=== PATIENT | female | born 1970 | race Hispanic/Latino ===

== ENCOUNTER → 2019-12-28 | Outpatient (CLI) | payer SELFPAY | LOC: GMA MATASK 10:32 | PROVIDERS: ATTEND Family Medicine | DX: Z00.00 Encounter for general adult medical examination without abnormal findings (principal); I10 Essential (primary) hypertension ==

== ENCOUNTER 2020-03-02 04:14 | Inpatient (IN) | payer BC, OTHER ==
--- NOTE | 2020-03-02 04:38 | ED.PDOC ---
History of Present Illness - General Chief Complaint: Respiratory Problem Stated Complaint: shortness of breath Time Seen by Provider: 03/02/20 04:37 Source: patient, Vital Signs reviewed Exam Limitations: no limitations - History of Present Illness Comments: This is a 49-year-old female with history of hypertension presenting to the emergency department with shortness of breath, intermittent fevers, cough, ongoing for 1 week. She tested positive for COVID-19 earlier this week at her PCP office. She was Treated at that time with amoxicillin and prednisone, But denies any significant improvement. She denies any leg swelling. She reports some chest pain with deep breath and with coughing. She denies any hemoptysis. Allergies/Adverse Reactions: Allergies NO KNOWN ALLERGY Allergy (Verified 09/17/15 14:07) Home Medications: Ambulatory Orders Amphetamine-Dextroamphetamine [Adderall 30 mg] 30 mg PO BID 09/17/15 Lisinopril 10 mg PO DAILY 09/17/15 HYDROcodone 5MG/APAP 325MG [[place] 5/325] 1 - 2 ea PO .Q4H #30 tab 09/19/15 levoFLOXacin [Levaquin] 500 mg PO Q24H #5 tab 09/19/15 metroNIDAZOLE [Flagyl] 500 mg PO Q8HR #15 tab 09/19/15 Review of Systems - Review of Systems Constitutional: States: chills, fever EENTM: States: nose congestion, throat pain. Denies: ear discharge, throat swelling, mouth pain, mouth swelling Respiratory: States: cough, short of breath. Denies: orthopnea, stridor, wheezing Cardiology: States: chest pain. Denies: edema, syncope Gastrointestinal/Abdominal: Denies: abdominal pain, constipation, diarrhea, nausea, vomiting Genitourinary: Denies: dysuria, hematuria Musculoskeletal: Denies: back pain, joint pain, muscle stiffness, neck pain Skin: Denies: lesions, rash Neurological: States: headache. Denies: paresthesia, tingling, weakness Endocrine: States: no symptoms reported Hematologic/Lymphatic: States: no symptoms reported. Denies: blood clots Past Medical History (General) - Patient Medical History Hx Stroke: No Hx Cardiac Disorders: No Hx Congestive Heart Failure: No Hx Hypertension: Yes - on medication Hx Diabetes: No Hx MRSA: Yes MRSA Source:: Wound - Vaccination History Hx Influenza Vaccination: Yes - 2014 - Social History Hx Tobacco Use: No - Female History Patient : No Family Medical History - Family History Father Living Status: Still Living Hx Family Hypertension: Yes Hx Family Diabetes: Yes Physical Exam - Physical Exam General Appearance: Alert, Comfortable ENT Exam: normal ENT inspection, hearing grossly normal Neck: non-tender, full range of motion, supple, normal inspection Respiratory: chest non-tender, lungs clear, normal breath sounds, no respiratory distress, no accessory muscle use Cardiovascular/Chest: normal peripheral pulses, regular rate, rhythm, no edema, no gallop, no JVD, no murmur Gastrointestinal/Abdominal: non tender, soft, no organomegaly Extremity: normal range of motion, non-tender, normal inspection Neurologic: no motor/sensory deficits, alert, normal mood/affect, oriented x 3 Skin Exam: normal color, warm/dry Lymphatic: no adenopathy Progress - Progress Progress: 03/02/20 06:05 Ambulating room air O2 sat dropped to 88%. I do not feel she will do well at home given these desaturations. Will admit. 03/02/20 06:10 Discussed with Dolly Velasquez NP. Will admit. 03/02/20 06:13 Rechecked. Discussed plan for admission. Patient agrees with plan. All questions answered. DDx: Pneumonia, COVID-19, dehydration, bronchitis MDM: 49-year-old female with known Covid infection, tested positive at PCP office earlier this week. No improvement with p.o. steroids and antibiotics. Chest x- ray shows bilateral interstitial infiltrates. O2 sats in the low 90s on room air, but she desaturates to the upper 80s when ambulating. Risk factors for increased morbidity include obesity, history of hypertension. She has an elevated D-dimer and CRP in keeping with known diagnosis of COVID-19, low suspicion for PE at this time. Will admit for O2 and supportive care Emmanuel Varela DO [facility] #[id number] - Results/Orders Results/Orders: EKG reviewed personally by me at 0513. Normal sinus rhythm, rate of 90, normal axis, normal intervals, no ST segment elevations or depressions. Chest x-ray reviewed personally by me. Film is underpenetrated, poor inspiratory effort, there appear to be interstitial infiltrates bilaterally, right greater than left. 03/02/20 04:31 Chest,1 View [RAD] Stat 03/02/20 04:56 Miscellaneous Nursing Order .ONCE EKG Assessment DAILY Laboratory Results - last 24 hr 03/02/20 03/02/20 03/02/20 04:25 04:25 04:25 WBC RBC Hgb Hct MCV MCH MCHC RDW Plt Count MPV Absolute Neuts (auto) Absolute Lymphs (auto) Absolute Monos (auto) Absolute Eos (auto) Absolute Basos (auto) Neutrophils % Lymphocytes % Monocytes % Eosinophils % Basophils % D-Dimer, Quantitative 463.0 H Sodium 132 L Potassium 4.2 Chloride 99 L Carbon Dioxide 19 L Anion Gap 18.2 H BUN 15 Creatinine 0.71 BUN/Creatinine Ratio 21.1 H Random Glucose 110 H Serum Osmolality 266.0 L Calcium 8.6 Total Bilirubin 0.6 AST 38 ALT 48 Alkaline Phosphatase 90 Troponin I C-Reactive Protein 14.4 H* Serum Total Protein 7.3 Albumin 4.1 Globulin 3.2 Albumin/Globulin Ratio 1.3 03/02/20 03/02/20 04:32 05:15 WBC 13.0 H RBC 4.86 Hgb 15.4 Hct 43.5 MCV 89.6 MCH 31.6 H MCHC 35.3 RDW 12.8 Plt Count 307 MPV 8.5 Absolute Neuts (auto) 11.10 H Absolute Lymphs (auto) 1.30 Absolute Monos (auto) 0.60 Absolute Eos (auto) 0.00 Absolute Basos (auto) 0.10 Neutrophils % 84.9 H Lymphocytes % 10.0 L Monocytes % 4.6 Eosinophils % 0.0 L Basophils % 0.5 D-Dimer, Quantitative Sodium Potassium Chloride Carbon Dioxide Anion Gap BUN Creatinine BUN/Creatinine Ratio Random Glucose Serum Osmolality Calcium Total Bilirubin AST ALT Alkaline Phosphatase Troponin I < 0.02 C-Reactive Protein Serum Total Protein Albumin Globulin Albumin/Globulin Ratio Vital Signs - 8 hr 03/02/20 03/02/20 04:30 05:21 Temperature 96.9 F L Pulse Rate [ 103 H 102 H left] Respiratory 20 20 Rate Blood Pressure 174/102 145/85 [left] O2 Sat by Pulse 93 L 99 Oximetry Departure - Departure Clinical Impression: Sepsis due to COVID-19 Respiratory failure Qualifiers: Chronicity: acute Respiratory failure complication: hypoxia Qualified Code(s): J96.01 - Acute respiratory failure with hypoxia Time of Disposition: 06:17 Disposition: Admit Patient Condition: Fair Departure Forms: ED Discharge - Pt. Copy, Patient Portal Self Enrollment Referrals: Dusty Vickers MD [Primary Care Provider] - 1-2 Weeks Home Medications: Ambulatory Orders Amphetamine-Dextroamphetamine [Adderall 30 mg] 30 mg PO BID 09/17/15 Lisinopril 10 mg PO DAILY 09/17/15 HYDROcodone 5MG/APAP 325MG [[place] 5/325] 1 - 2 ea PO .Q4H #30 tab 09/19/15 levoFLOXacin [Levaquin] 500 mg PO Q24H #5 tab 09/19/15 metroNIDAZOLE [Flagyl] 500 mg PO Q8HR #15 tab 09/19/15 Decision To Admit - Decistion To Admit Decision to Admit Reason: Admit from ER Decision to Admit Date: 03/02/20 Decision to Admit Time: 06:18
--- NOTE | 2020-03-02 06:10 | RAD ---
CHEST X-RAY 1 VIEW on 03/02/2020 CLINICAL INDICATION: Shortness of breath, positive COVID 19 COMPARISON: None FINDINGS: Borderline cardiomegaly is noted. There are bilateral opacities consistent with edema and/or pneumonia and based upon the patient's history likely represents COVID 19 pneumonia. Hilar and mediastinal contours are within normal limits. No bony abnormality is noted. IMPRESSION: Bilateral opacities likely representing COVID 19 pneumonia. Electronically signed by: Jared Reed 03/02/2020 6:08 AM CDT
--- NOTE | 2020-03-02 08:20 | HP ---
SUPERVISING PHYSICIAN: Pilo Coyle M.D. CHIEF COMPLAINT: SHORTNESS OF BREATH. HISTORY OF PRESENT ILLNESS: This is a 49 year-old female patient who has a history of hypertension and attention deficit disorder and presented to the Emergency Room after one week of progressively worsening shortness of breath. She actually started feeling poorly about a week ago and she went to her primary care physician's office on Tuesday and was tested and found to be positive for Covid-19. Over the last week, she has progressively worsened with increasing cough, chills, shortness of breath and headache. She presented to the Emergency Room and her vital signs were temperature of 96.9, heart rate 103, blood pressure 174/102 and came down to 145/85, respiratory rate was 20, oxygen saturation 90% on room air. She had lab drawn and her WBCs were 13,000 with a hemoglobin of 15.4, hematocrit 43.5. D-dimer 463, sodium 132, potassium 40.2, chloride 99, BUN 15, creatinine 0.71, serum osmolality 266, serum magnesium 1.5, liver enzymes within normal limits. C--reactive protein 14.4, troponin less than 0.02. Serum Hcg was negative. Chest x-ray shows bilateral opacities likely representing Covid-19 pneumonia. She was given judicious fluids in the Emergency Room and I was called for admission to the hospital. PAST MEDICAL HISTORY: 1. Hypertension. 2. Attention deficit hyperactivity disorder. PAST SURGICAL HISTORY: 1. Cholecystectomy. 2. Tonsillectomy. 3. Appendectomy. OUTPATIENT MEDICATIONS: 1. Amphetamines./dextroamphetamine. 2. Hydrocodone. 3. Levaquin. 4. Lisinopril. 5. Metronidazole.. ALLERGIES: NO KNOWN DRUG ALLERGIES. SOCIAL HISTORY: She lives in [place]. She denies tobacco, ETOH or illicit drg use. REVIEW OF SYSTEMS: GENERAL: Positive for fatigue, fever, negative for weight changes. HEENT: Negative for sinus symptoms, vision changes, sore throat or ear pain. RESPIRATORY: Positive for coughing, wheezing or shortness of breath. CARDIAC: Negative for chest pain, palpitations or tachycardia. GASTROINTESTINAL: Negative for nausea and vomiting, diarrhea or constipation. GENITOURINARY: Negative for hematuria, dysuria, polyuria. NEUROLOGIC: Positive for headache and weakness, negative for seizures. SKIN: Negative for rashes or lesions. PHYSICAL EXAMINATION: VITAL SIGNS: Temperature 98/6, heart rate 108, respiratory rate 20, O2 sat 97% on 2 liters nasal cannula. GENERAL: This is a 49 year-old obese female lying in her h oxygen saturation bed. She is in moderate respiratory distress. HEENT: Normocephalic and atraumatic. Pupils are equal and reactive. Oropharynx is clear. NECK: Supple without mass. CHEST: Diminished breath sounds throughout with some expiratory wheezes. She is tachypneic and speaking in only 2 to 3-word phrases. . CARDIOVASCULAR: Regular rate and rhythm. At times she is tachycardiac. ABDOMEN: Soft, nondistended, non-tender. Bowel sounds are positive. . EXTREMITIES: No cyanosis, clubbing or edema. SKIN: [place], warm and dry. NEUROLOGIC: She is awake, alert and oriented times three. Cranial nerves II through XII are grossly intact as tested. LABORATORY AND TESTS: As per the History of Present Illness. RADIOLOGY: Followup CT of the chest shows: 1. Diffuse bilateral pulmonary opacities consistent with viral pneumonitis. Pattern is typical of Covid-19. ASSESSMENT: 1. Covid pneumonitis with shortness of breath and coughing. 2. Hypertension. 3. Attention deficit hyperactivity disorder. PLAN: The patient has been admitted to the hospital. We will continue the pneumonia protocol and aggressive pulmonary hygiene including p.r.n. scheduled albuterol. She will continue on the azithromycin and Rocephin. We will also continue the routine Covid orders including watching her lab. She will be on 5 days of Remdesivir as well as Decadron and Lovenox. She has a PPI for ulcer prophylaxis. we will encourage good pulmonary hygiene and will continue to monitor the patient closely and follow as needed. #[id number] [facility]
[2020-03-02] MEDS ORDERED: ACETAMINOPHEN 325 MG TAB PO PRN (09:59)
[2020-03-02] MEDS ORDERED: SODIUM CHLORIDE 0.9% (FLUSH) 10 ML SYG IV PRN (09:59)
[2020-03-02] MEDS ORDERED: ONDANSETRON INJ 4 MG/2 ML VIAL IV PRN (09:59)
[2020-03-02] MEDS ORDERED: ALBUTEROL INHALER 64 PUFF/8GM INH PRN (10:05)
[2020-03-02] MEDS ORDERED: SODIUM CHLORIDE 0.9% 1000ML 1,000 ML IVS ONE (10:08)
--- NOTE | 2020-03-02 11:06 | CT ---
EXAM: Chest w/o Contrast HISTORY: COVID COMPARISON: 03/02/2020 TECHNIQUE: Contiguous axial images of the chest were obtained from the thoracic inlet to the upper abdomen without intravenous contrast followed by multiplanar reformats. This exam was performed according to our departmental dose-optimization program, which includes automated exposure control, adjustment of the mA and/or kV according to patient size and/or use of iterative reconstruction technique. FINDINGS: Diffusely scattered bilateral nodular groundglass pulmonary opacities No pneumothorax or pleural effusion. Heart size normal. No pericardial effusion. No mediastinal adenopathy. The central airways are patent. Great vessels are normal. Limited visualization of upper abdominal contents is unremarkable for an acute process. No destructive osseous lesion. IMPRESSION: 1. Diffuse bilateral pulmonary opacities, consistent with viral pneumonitis. Pattern is typical of COVID. Electronically signed by: Stone Hogue MD 03/02/2020 11:04 AM CDT
[2020-03-02] MEDS: ALBUTEROL INHALER 64 PUFF/8GM INH SCH ×3 (11:50→20:30)
[2020-03-02] MEDS ORDERED: cefTRIAXone SODIUM 1 GM VIAL ONE (11:53)
[2020-03-02] MEDS ORDERED: AZITHROMYCIN IV 500 MG VIAL IVPB ONE (11:54)
[2020-03-02] MEDS ORDERED: SODIUM CHLORIDE 0.9% 250ML 250 ML ONE (11:54)
[2020-03-02] MEDS ORDERED: SODIUM CHL 0.9% 50ML MIN-BAG+ 50 ML IVPB ONE (11:54)
[2020-03-02] MEDS ORDERED: REMDESIVIR 200 MG in SODIUM CHLORIDE 0.9% 250ML 250 ML IVPB ONE (12:00)
[2020-03-02] MEDS: ENOXAPARIN SODIUM 40 MG/0.4 ML SYG SUBCU SCH (13:38)
[2020-03-02] MEDS: IBUPROFEN 400 MG TAB PO PRN ×2 (13:38→20:30)
[2020-03-02] MEDS: AZITHROMYCIN IV 500 MG in SODIUM CHLORIDE 0.9% 250ML 250 ML IVPB SCH (13:39)
[2020-03-02] MEDS: cefTRIAXone SODIUM 1 GM in SODIUM CHL 0.9% 50ML MIN-BAG+ 50 ML IVPB SCH (13:39)
[2020-03-02] MEDS: DEXAMETHASONE INJ 10 MG/ML VIAL IV SCH (13:39)
[2020-03-02] MEDS ORDERED: ALPRAZolam 0.25 MG TAB PO ONE (13:57)
[2020-03-02] MEDS: CHLORPHENIRAMINE W/HYDROCODONE 5 ML UD PO PRN (18:10)
[2020-03-02] MEDS: BIFIDOBACTERIUM INFANTIS 4 MG CAP PO SCH (20:20)
[2020-03-02] MEDS: guaiFENesin ER TAB 600 MG TAB PO SCH (20:20)
[2020-03-02] MEDS: SODIUM CHLORIDE 0.9% (FLUSH) 10 ML SYG IV SCH (20:20)
[2020-03-03] MEDS: traMADol HCL 50 MG TAB PO PRN ×3 (01:11→20:36)
[2020-03-03] MEDS: CHLORPHENIRAMINE W/HYDROCODONE 5 ML UD PO PRN ×2 (05:52→20:38)
[2020-03-03] MEDS ORDERED: PANTOPRAZOLE SODIUM IV 40 MG VIAL IV SCH (06:30)
--- NOTE | 2020-03-03 07:08 | RAD ---
PROCEDURE:XR CHEST 1 VIEW HISTORY:covid COMPARISON: March 02, 2020 FINDINGS: The heart again seen to be borderline enlarged. There are diffuse patchy infiltrates seen in both the left and right lungs similar to the prior examination there is no effusion or pneumothorax. The osseous structures and soft tissues are normal. IMPRESSION: Stable chest x-ray. Electronically signed by: Osbaldo Calero MD 03/03/2020 7:06 AM CDT
[2020-03-03] MEDS ORDERED: cefTRIAXone SODIUM 1 GM VIAL ONE (07:28)
[2020-03-03] MEDS ORDERED: DEXAMETHASONE INJ 10 MG/ML VIAL ONE (07:28)
[2020-03-03] MEDS ORDERED: ENOXAPARIN SODIUM 40 MG/0.4 ML SYG SUBCU ONE (07:28)
[2020-03-03] MEDS ORDERED: AZITHROMYCIN IV 500 MG VIAL IVPB ONE (07:28)
[2020-03-03] MEDS ORDERED: SODIUM CHLORIDE 0.9% 250ML 250 ML ONE (07:29)
[2020-03-03] MEDS ORDERED: SODIUM CHL 0.9% 50ML MIN-BAG+ 50 ML IVPB ONE ×2 (07:29→07:31)
[2020-03-03] MEDS ORDERED: ALPRAZolam 0.25 MG TAB ONE (08:39)
[2020-03-03] MEDS: ALBUTEROL INHALER 64 PUFF/8GM INH SCH ×4 (08:40→20:10)
[2020-03-03] MEDS: DEXAMETHASONE INJ 10 MG/ML VIAL IV SCH (08:59)
[2020-03-03] MEDS: ENOXAPARIN SODIUM 40 MG/0.4 ML SYG SUBCU SCH (08:59)
[2020-03-03] MEDS: guaiFENesin ER TAB 600 MG TAB PO SCH ×2 (08:59→20:37)
[2020-03-03] MEDS: AZITHROMYCIN IV 500 MG in SODIUM CHLORIDE 0.9% 250ML 250 ML IVPB SCH (09:00)
[2020-03-03] MEDS: IV SET AND CAP CHANGE INJ INJ SCH (09:00)
[2020-03-03] MEDS: ALPRAZolam 0.25 MG TAB PO PRN ×2 (09:02→20:37)
[2020-03-03] MEDS: SODIUM CHLORIDE 0.9% (FLUSH) 10 ML SYG IV SCH ×2 (09:15→20:38)
[2020-03-03] MEDS: cefTRIAXone SODIUM 1 GM in SODIUM CHL 0.9% 50ML MIN-BAG+ 50 ML IVPB SCH (10:00)
[2020-03-03] MEDS: BIFIDOBACTERIUM INFANTIS 4 MG CAP PO SCH ×2 (11:00→20:37)
[2020-03-03] MEDS: REMDESIVIR 100 MG in SODIUM CHLORIDE 0.9% 250ML 250 ML IVPB SCH (13:00)
--- NOTE | 2020-03-03 15:05 | PN ---
SUPERVISING PHYSICIAN: Dusty Vickers MD DATE: 03/03/20 SUBJECTIVE: The patient states she does not really feel like she is any better than she was yesterday. Shortness of breath is the same. She is still having a cough. OBJECTIVE: VITAL SIGNS: Blood pressure 140/82, heart rate 106, respiratory rate 20, temperature 98.3, oxygen saturation 91% on 2 liters via nasal cannula. GENERAL: Ms. Rodríguez is a 49-year-old female who is in mild respiratory distress currently. NEUROLOGIC: The patient is alert. LUNGS: Diminished. CARDIOVASCULAR: Regular rate and rhythm. Normal S1, S2. Currently tachycardic. ABDOMEN: Soft. Positive bowel sounds. GENITOURINARY: Deferred. EXTREMITIES: Lower extremities with no edema. LABORATORY: White count 10.1, hemoglobin 14.5, hematocrit 41.0, platelet count 304. Fibrinogen 636, D-dimer 370. Chemistry unremarkable. CRP is up a little bit to 14.8 from 14.4. RADIOLOGY: Chest x-ray with no significant changes from yesterday's. ASSESSMENT: 1. COVID pneumonitis. 2. Hypertension. 3. Attention deficit hyperactivity disorder. PLAN: We will continue the empiric antibiotics with azithromycin and Rocephin as well as Decadron, Lovenox and Remdesivir. We will complete the Remdesivir course and continue to titrate the O2 to keep her O2 saturations above 90%. I am hoping that symptomatically she improves. Repeat labs tomorrow as well. #[id number] [facility]
[2020-03-04] MEDS: PANTOPRAZOLE SODIUM TAB 40 MG PO SCH (06:15)
[2020-03-04] MEDS: ALBUTEROL INHALER 64 PUFF/8GM INH SCH ×3 (08:00→20:10)
[2020-03-04] MEDS: cefTRIAXone SODIUM 1 GM in SODIUM CHL 0.9% 50ML MIN-BAG+ 50 ML IVPB SCH (08:35)
[2020-03-04] MEDS: BIFIDOBACTERIUM INFANTIS 4 MG CAP PO SCH ×2 (08:35→20:51)
[2020-03-04] MEDS: SODIUM CHLORIDE 0.9% (FLUSH) 10 ML SYG IV SCH ×2 (08:35→20:51)
[2020-03-04] MEDS: DEXAMETHASONE INJ 10 MG/ML VIAL IV SCH (08:36)
[2020-03-04] MEDS: ENOXAPARIN SODIUM 40 MG/0.4 ML SYG SUBCU SCH (08:37)
[2020-03-04] MEDS: guaiFENesin ER TAB 600 MG TAB PO SCH ×2 (08:37→20:51)
[2020-03-04] MEDS: ALPRAZolam 0.25 MG TAB PO PRN ×2 (08:38→20:53)
[2020-03-04] MEDS: CHLORPHENIRAMINE W/HYDROCODONE 5 ML UD PO PRN ×2 (08:38→20:53)
[2020-03-04] MEDS: AZITHROMYCIN IV 500 MG in SODIUM CHLORIDE 0.9% 250ML 250 ML IVPB SCH (09:21)
--- NOTE | 2020-03-04 11:27 | PN ---
SUPERVISING PHYSICIAN: Dusty Vickers MD DATE: 03/04/20 SUBJECTIVE: The patient states she still exertionally gets short of breath, but otherwise is in no distress at rest. OBJECTIVE: VITAL SIGNS: Blood pressure 114/78, heart rate 62, respiratory rate 20, temperature 97.8, oxygen saturation 97% on 2 liters via nasal cannula. GENERAL: Ms. Rodríguez is a 49-year-old female who is in no active distress. NEUROLOGIC: The patient is alert. LUNGS: Diminished. CARDIOVASCULAR: Regular rate and rhythm. Normal S1, S2. ABDOMEN: Soft. Positive bowel sounds. EXTREMITIES: Lower extremities with no edema. Pulses 2+. Capillary refill less than 2 seconds. LABORATORY: White count 7.5, hemoglobin 14.3, hematocrit 41.1, platelet count 334. Fibrinogen 575 which is down from 636 yesterday. D-dimer down to 307 from 370 yesterday.. Chemistry shows CRP 7.3, down from 14.8 yesterday. Other chemistry values are unremarkable. ASSESSMENT: 1. COVID pneumonitis. 2. Hypertension. 3. Attention deficit hyperactivity disorder. PLAN: We will continue the empiric antibiotics with azithromycin and Rocephin and continue to utilize Decadron, Lovenox and Remdesivir as well. We will continue to wean O2 as tolerated. We will recheck her labs tomorrow. #[id number] [facility]
[2020-03-04] MEDS: REMDESIVIR 100 MG in SODIUM CHLORIDE 0.9% 250ML 250 ML IVPB SCH (11:34)
[2020-03-04] MEDS: traMADol HCL 50 MG TAB PO PRN ×2 (11:35→20:54)
[2020-03-04] MEDS ORDERED: SODIUM CHLORIDE 0.9% 250ML 250 ML ONE (11:47)
[2020-03-05] MEDS: PANTOPRAZOLE SODIUM TAB 40 MG PO SCH (05:45)
[2020-03-05] MEDS: BIFIDOBACTERIUM INFANTIS 4 MG CAP PO SCH ×2 (08:29→20:09)
[2020-03-05] MEDS: ENOXAPARIN SODIUM 40 MG/0.4 ML SYG SUBCU SCH (08:29)
[2020-03-05] MEDS: DEXAMETHASONE INJ 10 MG/ML VIAL IV SCH (08:29)
[2020-03-05] MEDS: guaiFENesin ER TAB 600 MG TAB PO SCH ×2 (08:30→20:10)
[2020-03-05] MEDS: SODIUM CHLORIDE 0.9% (FLUSH) 10 ML SYG IV SCH ×2 (08:30→20:10)
[2020-03-05] MEDS: cefTRIAXone SODIUM 1 GM in SODIUM CHL 0.9% 50ML MIN-BAG+ 50 ML IVPB SCH (08:30)
[2020-03-05] MEDS: ALBUTEROL INHALER 64 PUFF/8GM INH SCH ×4 (08:54→20:00)
[2020-03-05] MEDS: AZITHROMYCIN IV 500 MG in SODIUM CHLORIDE 0.9% 250ML 250 ML IVPB SCH (09:08)
[2020-03-05] MEDS: IV SET AND CAP CHANGE INJ INJ SCH (09:09)
[2020-03-05] MEDS: IBUPROFEN 400 MG TAB PO PRN (09:53)
--- NOTE | 2020-03-05 10:49 | PN ---
SUPERVISING PHYSICIAN: Dusty Vickers MD DATE: 03/05/20 SUBJECTIVE: The patient states she actually feels a little bit better today and is not as short of breath. Her oxygen requirements are still 2 liters per minute, but she is not as dyspneic with exertion. OBJECTIVE: VITAL SIGNS: Blood pressure 121/65, heart rate 71, respiratory rate 18, temperature 97.7, oxygen saturation 95% on 1 liter via nasal cannula. GENERAL: Ms. Rodríguez is a 49-year-old female who is in no active distress. NEUROLOGIC: The patient is alert. LUNGS: Diminished, but no rales or wheezing. CARDIOVASCULAR: Regular rate and rhythm. Normal S1, S2. ABDOMEN: Soft. Positive bowel sounds. EXTREMITIES: Lower extremities with no edema. LABORATORY: White count 7.5. D-dimer is down to 151. CRP down to 2.5. ASSESSMENT: 1. COVID pneumonitis. 2. Hypertension. 3. Attention deficit hyperactivity disorder. PLAN: The patient seems to be stepwise improving with improved clinical presentation as well as labs. We will continue current empiric antibiotics, Decadron, Lovenox and Remdesivir. If she continues to progress, can potentially be discharged tomorrow after Remdesivir, but that will depend on her symptoms and her need for oxygen. She may need to go home oxygen if she desaturates. #[id number] [facility]
[2020-03-05] MEDS: REMDESIVIR 100 MG in SODIUM CHLORIDE 0.9% 250ML 250 ML IVPB SCH (12:39)
[2020-03-05] MEDS: ALPRAZolam 0.25 MG TAB PO PRN ×2 (12:48→20:14)
[2020-03-05] MEDS: PROMETHAZINE W/CODEINE SYR 5 ML UD PO PRN ×2 (13:55→20:14)
[2020-03-05] MEDS: traMADol HCL 50 MG TAB PO PRN (20:23)
[2020-03-06 01:33] VITALS: TEMP 97.9
[2020-03-06] MEDS: PANTOPRAZOLE SODIUM TAB 40 MG PO SCH (06:13)
[2020-03-06] MEDS: cefTRIAXone SODIUM 1 GM in SODIUM CHL 0.9% 50ML MIN-BAG+ 50 ML IVPB SCH (07:50)
[2020-03-06] MEDS: BIFIDOBACTERIUM INFANTIS 4 MG CAP PO SCH (08:19)
[2020-03-06] MEDS: traMADol HCL 50 MG TAB PO PRN (08:19)
[2020-03-06] MEDS: guaiFENesin ER TAB 600 MG TAB PO SCH (08:19)
[2020-03-06] MEDS: ALPRAZolam 0.25 MG TAB PO PRN (08:19)
[2020-03-06] MEDS: AZITHROMYCIN IV 500 MG in SODIUM CHLORIDE 0.9% 250ML 250 ML IVPB SCH (08:20)
[2020-03-06] MEDS: ENOXAPARIN SODIUM 40 MG/0.4 ML SYG SUBCU SCH (08:20)
[2020-03-06] MEDS: DEXAMETHASONE INJ 10 MG/ML VIAL IV SCH (08:20)
[2020-03-06] MEDS: SODIUM CHLORIDE 0.9% (FLUSH) 10 ML SYG IV SCH (08:21)
[2020-03-06] MEDS: PROMETHAZINE W/CODEINE SYR 5 ML UD PO PRN (08:21)
[2020-03-06] MEDS: ALBUTEROL INHALER 64 PUFF/8GM INH SCH ×2 (08:40→13:30)
[2020-03-06] MEDS: REMDESIVIR 100 MG in SODIUM CHLORIDE 0.9% 250ML 250 ML IVPB SCH (10:43)
[2020-03-06 14:27] VITALS: BP 151/67; O2SAT 95
--- NOTE | 2020-03-18 08:37 | DS ---
SUPERVISING PHYSICIAN: Dusty Vickers MD ADMISSION DIAGNOSIS: 1. COVID pneumonitis with shortness of breath and coughing. 2. Hypertension. 3. Attention deficit hyperactivity disorder. DISCHARGE DIAGNOSIS: 1. COVID pneumonitis. 2. Hypertension. 3. Attention deficit hyperactivity disorder. REASON FOR HOSPITALIZATION: This is a 49 year-old female patient who has a history of hypertension and attention deficit disorder and presented to the Emergency Room after one week of progressively worsening shortness of breath. She actually started feeling poorly about a week ago and she went to her primary care physician's office on Tuesday and was tested and found to be positive for COVID-19. Over the last week, she has progressively worsened with increasing cough, chills, shortness of breath and headache. She presented to the Emergency Room and her vital signs were temperature of 96.9, heart rate 103, blood pressure 174/102 and came down to 145/85, respiratory rate was 20, oxygen saturation 90% on room air. She had lab drawn and her WBCs were 13,000 with a hemoglobin of 15.4, hematocrit 43.5. D-dimer 463, sodium 132, potassium 40.2, chloride 99, BUN 15, creatinine 0.71, serum osmolality 266, serum magnesium 1.5, liver enzymes within normal limits. C--reactive protein 14.4, troponin less than 0.02. Serum Hcg was negative. Chest x-ray shows bilateral opacities likely representing COVID-19 pneumonia. She was given judicious fluids in the Emergency Room and I was called for admission to the hospital. LABORATORY: White count on discharge was 9,700, differential within normal limits. Coagulation studies showed normal D-dimer. Chemistries showed normal electrolytes, creatinine 0.52, magnesium 1.9, C-reactive protein normalized to 0.9 compared to admission of 14.8. MICROBIOLOGY: No specimens submitted. RADIOLOGY: Chest x-ray showed bilateral opacities representing COVID-19 pneumonia. Please see those reports for details. She also had a CT of the chest which showed diffuse bilateral pulmonary opacities consistent with viral pneumonitis. Please see that report for details. EKG showed normal sinus rhythm at [address] or T-wave changes to indicated ischemia. HOSPITAL COURSE: Ms. Rodríguez was admitted for treatment of COVID pneumonitis. She was treated with azithromycin, Decadron, Lovenox, Rocephin, albuterol and Remdesivir. She clinically improved and on the day of discharge, she was felt clinically stable to discharge to continue with outpatient management. Her saturations were 95% on room air, blood pressure 151/67, heart rate 75, temperature 97.9. PLAN: Ms. Rodríguez was discharged on 03/06/20 with instructions to followup with Dr. Vickers. She was to continue activities as tolerated. She was to return to the ER for any concerning symptoms. MEDICATIONS ON DISCHARGE: 1. Align 4 mg twice daily. 2. Decadron 6 mg daily, #5, no refills. 3. Guaifenesin as needed. 4. Cefdinir 300 mg twice daily, #10. 5. Phenergan with codeine syrup as needed, 5 mL q.6h., 4 ounces, no refills. 6. Albuterol inhaler as needed q.4h., no refills. 7. Xanax 0.25 mg q.6h. as needed, #10, no refills. CONDITION ON DISCHARGE: Stable and improved. DISPOSITION: She was discharged to home. [facility][id number] [facility]
== END 2020-03-06 13:50 | disposition home or self-care (01) | DRG 177 ==
LOC: ER 04:14 → INTOOBSV 08:19 → MS 08:19 → OBSVTOIN 08:19 → UNDOADMOB 08:19 → MS 03-03 13:45 → OBSVTOIN 03-03 13:45
PROVIDERS: ADMIT Nurse Practitioner Acute Care; ATTEND Nurse Practitioner Family
PROC: XW033E5 Introduction of Remdesivir Anti-infective into Peripheral Vein, Percutaneous Approach, New Technology Group 5 (ICD-10-PCS; principal; 2020-03-03)
DX: U07.1 COVID-19 (principal); J12.89 Other viral pneumonia; J96.01 Acute respiratory failure with hypoxia; I10 Essential (primary) hypertension; F90.9 Attention-deficit hyperactivity disorder, unspecified type; Z79.891 Long term (current) use of opiate analgesic; Z79.899 Other long term (current) drug therapy; E66.9 Obesity, unspecified; R79.89 Other specified abnormal findings of blood chemistry

== ENCOUNTER → 2020-06-26 | Outpatient (CLI) | payer BC | LOC: GMAM 16:48 | PROVIDERS: ATTEND Family Medicine | DX: E53.8 Deficiency of other specified B group vitamins (principal); R53.83 Other fatigue; E55.9 Vitamin D deficiency, unspecified ==